=== PATIENT | female | born 1990 | race Caucasian/White ===

== ENCOUNTER 2018-10-15 13:52 | Emergency (ER) | payer SELFPAY ==
--- NOTE | 2018-10-15 14:12 | ER Document Report ---
ED Medical Screen (RME) - General Chief Complaint: Vag Bleeding, +preg <12wks Stated Complaint: BLEEDING WITH Time Seen by Provider: 10/15/18 14:09 Mode of Arrival: Ambulatory Information source: Patient TRAVEL OUTSIDE OF THE [place] IN LAST 30 DAYS: No - HPI Patient complains to provider of: ; bleeding Onset: This morning - pt. is G1, approx 6 weeks along with vaginal bleeding after intercourse this am - Related Data Allergies/Adverse Reactions: No Known Allergies Allergy (Verified 10/15/18 13:58) Past Medical History Renal/ Medical History: Denies: Hx Peritoneal Dialysis Physical Exam - Vital signs Vitals: Temp Pulse Resp BP Pulse Ox 99.2 F 110 H 18 127/67 H 100 10/15/18 14:01 10/15/18 14:01 10/15/18 14:01 10/15/18 14:01 10/15/18 14:01 Course - Vital Signs Vital signs: Temp Pulse Resp BP Pulse Ox 99.2 F 110 H 18 127/67 H 100 10/15/18 14:01 10/15/18 14:01 10/15/18 14:01 10/15/18 14:01 10/15/18 14:01
--- NOTE | 2018-10-15 14:49 | RADIOLOGY REPORT (SQ) ---
EXAM DESCRIPTION: U/S OB TRANSVAG W/DOPPLER COMPLETED DATE/TIME: 10/15/2018 2:39 pm REASON FOR STUDY: ; bleeding COMPARISON: None. TECHNIQUE: Transvaginal static and realtime grayscale images acquired of the pelvis. Additional acacia cted spectral and color Doppler images recorded. All images stored on PACs. CLINICAL AGE: 6 week 2 day. bHCG: Pending. LIMITATIONS: None. FINDINGS: UTERUS: No masses. No anomalies. GESTATIONAL SAC: Normal shape. Measurements correspond to a 5 week 2 day gestation. YOLK SAC: Yes. POLE: None present. RIGHT ADNEXA: Normal ovary with normal vascular flow. No adnexal free fluid. No adnexal masses. LEFT ADNEXA: Ovary not identified due to poor acoustical window. No adnexal free fluid. No adnexal masses. FREE FLUID: None. OTHER: No other significant finding. IMPRESSION: POSSIBLE EARLY INTRAUTERINE . BHCG LEVEL NOT AVAILABLE FOR CORRELATION WITH US FINDINGS. CONSIDER F/U BHCG AND/OR ULTRASOUND FOR VERIFICATION AND TO EXCLUDE ECTOPIC . Trimester of : First - 0 to 13 weeks. TECHNICAL DOCUMENTATION: JOB ID: [id number] [employer]- All Rights Reserved Reading location - IP/workstation name: [email or web address]
[2018-10-15 14:52] LABS: APPEARANCE,URINE CLEAR; BILIRUBIN,URINE NEGATIVE (NEGATIVE); COLOR,URINE YELLOW; GLUCOSE, URINE NEGATIVE (NEGATIVE); KETONES,URINE NEGATIVE (NEGATIVE); LEUKOCYTE ESTERASE,URINE NEGATIVE (NEGATIVE); NITRITE,URINE NEGATIVE (NEGATIVE); PROTEIN,URINE NEGATIVE (NEGATIVE); URINE SPECIFIC GRAVITY 1.009; UROBILINOGEN,URINE NEGATIVE mg/dL (<2.0)
[2018-10-15 14:56] LABS: ABSOLUTE BASOPHILS # (AUTO) 0.1 10^3/uL (0.0-0.2); ABSOLUTE EOSINOPHILS # (AUTO) 0.1 10^3/uL (0.0-0.6); ABSOLUTE LYMPHOCYTES (AUTO) 1.8 10^3/uL (0.5-4.7); ABSOLUTE MONOCYTES (AUTO) 0.7 10^3/uL (0.1-1.4); ABSOLUTE NEUT (AUTO) 10.9 10^3/uL (1.7-8.2); BASOPHILS % (AUTO) 0.9 % (0-2); EOSINOPHILS % (AUTO) 0.4 % (0-6); HEMATOCRIT 44.3 % (36.0-47.0); LYMPHOCYTES % (AUTO) 13.1 % (13-45); MEAN CORPUSCULAR HEMOGLOBIN 28.7 pg (27.0-33.4); MEAN CORPUSCULAR HGB CONC 33.9 g/dL (32.0-36.0); MEAN CORPUSCULAR VOLUME 85 fl (80-97); MONOCYTES % (AUTO) 5.4 % (3-13); PLATELET COUNT 272 10^3/uL (150-450); RED BLOOD COUNT 5.24 10^6/uL (3.72-5.28); RED CELL DISTRIBUTION WIDTH 13.4 % (11.5-14.0); SEGMENTED NEUTROPHILS % (AUTO) 80.2 % (42-78); TOTAL CELLS COUNTED % (AUTO) 100 %; WHITE BLOOD COUNT 13.7 10^3/uL (4.0-10.5)
[2018-10-15 15:16] LABS: ALANINE AMINOTRANSFERASE 35 U/L (9-52); ALBUMIN 4.9 g/dL (3.5-5.0); ALKALINE PHOSPHATASE 82 U/L (38-126); ANION GAP 11 (5-19); ASPARTATE AMINO TRANSFERASE 21 U/L (14-36); BILIRUBIN,DIRECT 0.1 mg/dL (0.0-0.4); BILIRUBIN,TOTAL 0.4 mg/dL (0.2-1.3); BLOOD UREA NITROGEN 11 mg/dL (7-20); CALCIUM 10.6 mg/dL (8.4-10.2); CARBON DIOXIDE 26 mmol/L (22-30); CHLORIDE 106 mmol/L (98-107); GLUCOSE 111 mg/dL (75-110); POTASSIUM 4.3 mmol/L (3.6-5.0); SODIUM 142.6 mmol/L (137-145); TOTAL PROTEIN 7.6 g/dL (6.3-8.2)
--- NOTE | 2018-10-15 17:42 | ER Document Report ---
ED General - General Chief Complaint: Vag Bleeding, +preg <12wks Stated Complaint: BLEEDING WITH Time Seen by Provider: 10/15/18 14:09 Mode of Arrival: Ambulatory Information source: Patient TRAVEL OUTSIDE OF THE [place] IN LAST 30 DAYS: No - HPI Patient complains to provider of: Early and vaginal bleeding Onset: Just prior to arrival Quality of pain: No pain Severity: None Associated symptoms: None Exacerbated by: Denies Relieved by: Denies Similar symptoms previously: No Recently seen / treated by doctor: No Notes: Patient is a 28-year-old female coming in today with chief complaint of vaginal bleeding. She found out a couple days ago that she was . She thinks that she is about 6 weeks along. This would be her first . She has type AB positive blood. She reports this morning she had intercourse with her boyfriend and then started having some bleeding. She describes this is less than a period. - Related Data Allergies/Adverse Reactions: No Known Allergies Allergy (Verified 10/15/18 13:58) Past Medical History - General Information source: Patient - Social History Smoking Status: Never Smoker Family History: Reviewed & Not Pertinent Patient has suicidal ideation: No Patient has homicidal ideation: No Renal/ Medical History: Denies: Hx Peritoneal Dialysis Review of Systems - Review of Systems Notes: Constitutional: No fevers. No chills. EENT: No eye redness. No eye pain. No ear pain. No sore throat. Cardiovascular: No chest pain. No palpitations. Respiratory: No cough. No shortness of breath. No respiratory distress. Gastrointestinal: No abdominal pain. No nausea, vomiting, or diarrhea. Genitourinary: Positive vaginal bleeding Musculoskeletal: Atraumatic. No swelling. No deformities. Skin: No rash or lesions. Lymphatic: No swollen lymph nodes. Neurologic: No headache. No syncope. Psychiatric: No suicidal or homicidal ideation. Physical Exam - Vital signs Vitals: Temp Pulse Resp BP Pulse Ox 99.2 F 110 H 18 127/67 H 100 10/15/18 14:01 10/15/18 14:01 10/15/18 14:01 10/15/18 14:01 10/15/18 14:01 - Notes Notes: General: Well-developed, well-nourished. In no acute distress. Non-toxic appearing. Cardiac: Well-perfused. Regular rate and rhythm. No murmurs, rubs, or gallops. Pulmonary: No respiratory distress. No cyanosis. Bilateral lung parra are clear to auscultation. Abdominal: Non-distended. Non-rigid. Bowels sounds are present in all four quadrants. No guarding or rebound. HEENT: Head is atraumatic. Conjunctivae not reddened. No tearing. PERRL. EOMI. Orbits atraumatic. No periorbital swelling or erythema. Oropharynx is without erythema, swelling, or exudates. Neck: Supple. No adenopathy. No meningismus. Dermatologic: Warm with good turgor. No rash. Atraumatic. Chest: Atraumatic. No chest wall tenderness to palpation. Musculoskeletal: Moves all extremities well. No range of motion deficits. no muscular or joint tenderness. No paraspinal muscle tenderness. no midline spinal tenderness or step-off. Genitourinary: Examination deferred per patient request Neurologic: No gross neurologic deficits. Psychiatric: Normal mood. Course - Re-evaluation Re-evalutation: 10/15/18 17:40 Patient has ultrasound findings of possible IUP. We will have her follow-up in 2 days for an hCG recheck. She does not need RhoGam. Told her boyfriend that he needs to abstain for a while until we know everything is okay. - Vital Signs Vital signs: Temp Pulse Resp BP Pulse Ox 99.2 F 110 H 18 127/67 H 100 10/15/18 14:01 10/15/18 14:01 10/15/18 14:01 10/15/18 14:01 10/15/18 14:01 - Laboratory Result Diagrams: 10/15/18 14:42 10/15/18 14:42 Laboratory results interpreted by me: 10/15/18 10/15/18 10/15/18 14:14 14:42 14:42 WBC 13.7 H Seg Neutrophils % 80.2 H Absolute Neutrophils 10.9 H Glucose 111 H Calcium 10.6 H Beta HCG, Quant 1136.20 H Urine Blood LARGE H Discharge - Discharge Clinical Impression: Threatened Condition: Good Disposition: HOME, SELF-CARE Instructions: Bleeding During Early ([facility]), Threatened Miscarriage ([facility]) Additional Instructions: You need to have your hormone level rechecked in 2 days Referrals: CHIRAG LANDRY MD [ACTIVE STAFF] - 10/17/18
[2018-10-15 18:12] VITALS: BP 126/68
--- NOTE | 2018-10-17 07:29 | ER Document Report ---
Doctor's Note Notes: 10/17/18 07:28 Patient was instructed to follow-up this morning to get an outpatient lab checked for repeat beta hCG quant. Order was provided to patient she is going to go across the street to [facility].
== END 2018-10-15 18:00 | disposition home or self-care (01) ==
LOC: ER 13:52
DX: O20.0 Threatened abortion (principal); Z3A.00 Weeks of gestation of pregnancy not specified
CPT/HCPCS: 36415; 76817; 80053; 81001; 84702; 85025; 86900; 86901; 93976; 99284

== ENCOUNTER → 2018-10-17 | Outpatient (CLI) | payer SELFPAY | LOC: OD 07:35 | PROVIDERS: ATTEND Physician Assistant | DX: O20.9 Hemorrhage in early pregnancy, unspecified (principal) | CPT/HCPCS: 36415; 84702 ==

== ENCOUNTER 2019-05-24 11:50 | Observation (INO) | payer MEDICAID ==
[2019-05-24] MEDS ORDERED: RINGERS SOLUTION,LACTATED 1,000 ML IV ONE (12:09)
[2019-05-24 13:12] LABS: ABSOLUTE LYMPHOCYTES (AUTO) 1.2 10^3/uL (0.5-4.7); ABSOLUTE NEUT (AUTO) 15.7 10^3/uL (1.7-8.2); BASOPHILS % (AUTO) 0.3 % (0-2); EOSINOPHILS % (AUTO) 0.1 % (0-6); HEMATOCRIT 34.6 % (36.0-47.0); HEMOGLOBIN 11.5 g/dL (12.0-15.5); LYMPHOCYTES % (AUTO) 6.7 % (13-45); MEAN CORPUSCULAR HEMOGLOBIN 27.2 pg (27.0-33.4); MEAN CORPUSCULAR HGB CONC 33.2 g/dL (32.0-36.0); MEAN CORPUSCULAR VOLUME 82 fl (80-97); MONOCYTES % (AUTO) 5.5 % (3-13); PLATELET COUNT 254 10^3/uL (150-450); RED BLOOD COUNT 4.23 10^6/uL (3.72-5.28); SEGMENTED NEUTROPHILS % (AUTO) 87.4 % (42-78); TOTAL CELLS COUNTED % (AUTO) 100 %; WHITE BLOOD COUNT 17.9 10^3/uL (4.0-10.5)
[2019-05-24 13:25] LABS: APPEARANCE,URINE SLIGHTLY-CLOUDY; BILIRUBIN,URINE NEGATIVE (NEGATIVE); COLOR,URINE YELLOW; GLUCOSE, URINE >=500 mg/dL (NEGATIVE); KETONES,URINE 80 mg/dL (NEGATIVE); LEUKOCYTE ESTERASE,URINE TRACE (NEGATIVE); NITRITE,URINE NEGATIVE (NEGATIVE); PROTEIN,URINE >=500 mg/dL (NEGATIVE); URINE SPECIFIC GRAVITY 1.029; UROBILINOGEN,URINE NEGATIVE mg/dL (<2.0)
[2019-05-24] MEDS ORDERED: ACETAMINOPHEN 325 MG TABLET PO PRN (13:34)
[2019-05-24] MEDS ORDERED: CEFTRIAXONE INJ 1000 MG VIAL ONE (13:35)
[2019-05-24 13:47] LABS: URINE AMPHETAMINES SCREEN NEGATIVE; URINE BARBITURATES SCREEN NEGATIVE; URINE BENZODIAZEPINES SCREEN NEGATIVE; URINE COCAINE SCREEN NEGATIVE; URINE MARIJUANA (THC) SCREEN NEGATIVE; URINE METHADONE SCREEN NEGATIVE; URINE PHENCYCLIDINE SCREEN NEGATIVE
[2019-05-24] MEDS ORDERED: ACETAMINOPHEN 325 MG TABLET ONE (13:47)
[2019-05-24] MEDS ORDERED: NALBUPHINE HCL INJ 10 MG/1 ML AMPULE ONE ×2 (13:50→13:58)
[2019-05-24] MEDS ORDERED: PROMETHAZINE HCL INJ 25 MG/1 ML VIAL ONE ×2 (13:50→13:58)
[2019-05-24] MEDS ORDERED: CEFTRIAXONE 1 GM/D5W RTU 1 GM/50 ML RTUPB IV SCH (14:00)
--- NOTE | 2019-05-24 14:03 | Admission Physical ---
Datetime Report Generated by CPN: 05/24/2019 14:03 CURRENT ADMISSION Chief Complaint: Maternal Discomfort Chief Complaint Other: Right back flank pain Indication for Induction: Not Applicable Admit Impression : , Intrauterine ; Observation/Evaluation Admit Impression- Other: Pyelonephritis Admit Plan: Observation/Evaluation ALLERGIES Medication Allergies: No Known Allergies (05/24/2019) OBSTETRICAL HISTORY EDC: 07/22/2019 00:00 PHYSICAL EXAM General: Normal HEENT: Normal Neurologic: Normal Thyroid: Deferred Heart: Normal Lungs: Normal Breast: Deferred Back: Abnormal Abdomen: Normal Genitourinary Exam: Deferred Extremities: Normal DTRs: Normal Pelvic Type: Not Done Physical Exam Comments: Gravid uterus Right flank pain Vital Signs: Reviewed; Within Normal Limits VAGINAL EXAM Contraction Comments: occasional MEMBRANES Membranes: Intact FETUS A EGA: 31.4 Monitoring: External US FHR- Baseline: 140 Variability: Moderate 6-25bpm Admit Comment: 31.4 wks C/O severe, sudden onset right flank pain, nausea _ vomiting this am. Afebrile. uneventful to this point FHR tracing appropriate for [place] records available Uterus nontender, relaxed tone CBC-WBC 17.9 Urine SG 1.029; >500 protein; >500 glucose; ketones 80 Plan admit for observation and evaluation Ultrasound of kidneys and placental status ordered Dr Zhou notified INFORMED CONSENT Assignment: Curtis Zhou MD Signature: with User ID: [email or web address] : with User ID: [email or web address] : I personally evaluated and examined the patient in conjunction with the MLP and agree with the assessment, treatment plan and disposition.
[2019-05-24] MEDS: RINGERS SOLUTION,LACTATED 1,000 ML IV PRN ×2 (14:09→14:48)
--- NOTE | 2019-05-24 14:18 | RADIOLOGY REPORT (SQ) ---
EXAM DESCRIPTION: U/S OB LIMITED COMPLETED DATE/TIME: 05/24/2019 1:52 pm REASON FOR STUDY: IUP @ 31.4, placental placement and integrity COMPARISON: None. TECHNIQUE: Limited transabdominal grayscale ultrasound for evaluation of specific requested obstetri brenna parameters. LIMITATIONS: None. FINDINGS: CERVICAL LENGTH: Not seen. ZAC: 7.4 cm cm. FHR: 152 beats per minute. PRESENTATION: Cephalic. PLACENTA: Anterior, grade 1. ANATOMY: Not assessed OTHER: No other significant findings. IMPRESSION: LIMITED OBSTETRICAL ULTRASOUND WITH MEASURED PARAMETERS DELINEATED ABOVE. Trimester of : Third trimester - 28 weeks to delivery. TECHNICAL DOCUMENTATION: JOB ID: [id number] [employer]- All Rights Reserved Reading location - IP/workstation name: [email or web address]
--- NOTE | 2019-05-24 14:19 | RADIOLOGY REPORT (SQ) ---
EXAM DESCRIPTION: U/S RETROPERITON (RENAL/AORTA) COMPLETED DATE/TIME: 05/24/2019 1:52 pm REASON FOR STUDY: acute RUQ flank pain COMPARISON: None. TECHNIQUE: Dynamic and static grayscale images acquired of the kidneys and bladder and recorded on P ACS. Additional selected color Doppler and spectral images recorded. LIMITATIONS: None. FINDINGS: RIGHT KIDNEY: Normal size, a meter is. Normal echogenicity. No solid or suspicious masses. No hydronephrosis. No calcifications. LEFT KIDNEY: Normal size, 10.7 cm. Normal echogenicity. No solid or suspicious masses. No hydronephr osis. No calcifications. BLADDER: No masses. OTHER FINDINGS: No other significant finding. IMPRESSION: Normal renal and bladder ultrasound. Questionable free fluid in Morison's pouch. No im age of this is provided. TECHNICAL DOCUMENTATION: JOB ID: [id number] [employer]- All Rights Reserved Reading location - IP/workstation name: [email or web address]
[2019-05-24] MEDS: ACETAMINOPHEN WITH CODEINE #3 TABLET PO PRN (20:36)
[2019-05-24] MEDS: CEFTRIAXONE 1 GM/D5W RTU 1 GM/50 ML RTUPB IV SCH (21:05)
[2019-05-25] MEDS: ACETAMINOPHEN WITH CODEINE #3 TABLET PO PRN ×5 (00:39→21:36)
[2019-05-25] MEDS: PROMETHAZINE HCL INJ 25 MG/1 ML VIAL IV PRN ×2 (07:59→21:37)
[2019-05-25] MEDS: RINGERS SOLUTION,LACTATED 1,000 ML IV PRN ×2 (07:59→16:35)
[2019-05-25] MEDS: CEFTRIAXONE 1 GM/D5W RTU 1 GM/50 ML RTUPB IV SCH ×2 (10:34→21:36)
--- NOTE | 2019-05-25 15:17 | PDOC PROGRESS REPORT ---
Subjective Progress Note for:: 05/25/19 Subjective:: right flank pain. No flatus, no BM, doing well with po intake Reason For Visit: IUP PYLENOPHRITIS Physical Exam - Physical Exam Vital Signs: Temp Pulse Resp BP Pulse Ox 97.7 F 111 H 16 112/67 100 05/25/19 07:19 05/25/19 07:19 05/25/19 03:51 05/25/19 07:19 05/25/19 07:19 Intake & Output 05/24/19 05/25/19 05/26/19 06:59 06:59 06:59 Intake Total 1761 100 Output Total 1000 Balance 1761 -900 Weight 79.7 kg General appearance: PRESENT: no acute distress, well-developed, well-nourished GI/Abdominal exam: PRESENT: normal bowel sounds, soft, other - no CVAT. ABSENT: distended, guarding, mass, organolmegaly, rebound, tenderness Rectal exam: PRESENT: deferred Extremities exam: PRESENT: full ROM. ABSENT: calf tenderness, clubbing, pedal edema Neurological exam: PRESENT: alert, awake, oriented to person, oriented to place, oriented to time, oriented to situation, CN II-XII grossly intact. ABSENT: motor sensory deficit Skin exam: PRESENT: dry, intact, warm. ABSENT: cyanosis, rash Result Laboratory Results: 05/24/19 12:57 05/24/19 12:50 Clean Catch Midstream Urine Culture - Final Group B Beta Streptococcus Impressions: Obstetrics Ultrasound 05/24/19 00:00 IMPRESSION: LIMITED OBSTETRICAL ULTRASOUND WITH MEASURED PARAMETERS DELINEATED ABOVE. Trimester of : Third trimester - 28 weeks to delivery. Renal Ultrasound 05/24/19 00:00 IMPRESSION: Normal renal and bladder ultrasound. Questionable free fluid in Morison's pouch. No image of this is provided. Status: Imported from PACS Assessment & Plan - Diagnosis (1) Pyelonephritis affecting Qualifiers: Trimester: third trimester Qualified Code(s): O23.03 - Infections of kidney in , third trimester Is this a current diagnosis for this admission?: Yes Plan: COnt BID abx and pain control prn, add breakthrough pain meds. Pt with traveling flank pain and not having good pain control with t#3. Dilaudid added. May also have a component of Nephrolithiasis. Plan on care reviewed with patient who verbalized understanding. (2) Carrier of group B Streptococcus Is this a current diagnosis for this admission?: Yes Plan: will need to be treated in labor. Cont BID rocephin (3) Constipation Is this a current diagnosis for this admission?: Yes Plan: colace and simethicone - Time Time Spent with patient: 15-24 minutes Smoking Cessation Education: 3 to 10 minutes Medications reviewed and adjusted accordingly: Yes Anticipated discharge: Home Within: within 24 hours - Inpatient Certification Based on my medical assessment, after consideration of the patient's comor bidities, presenting symptoms, or acuity I expect that the services needed warrant INPATIENT care.: Yes I certify that my determination is in accordance with my understanding of Medicare's requirements for reasonable and necessary INPATIENT services [42 CFR 412.3e].: Yes Medical Necessity: Failure to Improve With Outpatient Therapy, Need for Pain Control, Need for IV Antibiotics
[2019-05-25] MEDS ORDERED: SIMETHICONE 80 MG TAB.CHEW PO PRN (15:24)
[2019-05-25] MEDS: HYDROMORPHONE HCL INJ/PF 2 MG/ML AMPULE IV PRN ×2 (16:33→22:48)
[2019-05-25] MEDS: DOCUSATE SODIUM 100 MG CAPSULE PO SCH (18:13)
[2019-05-26] MEDS: RINGERS SOLUTION,LACTATED 1,000 ML IV PRN (01:39)
[2019-05-26 06:52] LABS: ABSOLUTE BASOPHILS # (AUTO) 0.1 10^3/uL (0.0-0.2); ABSOLUTE MONOCYTES (AUTO) 1.9 10^3/uL (0.1-1.4); ABSOLUTE NEUT (AUTO) 12.8 10^3/uL (1.7-8.2); BASOPHILS % (AUTO) 0.5 % (0-2); EOSINOPHILS % (AUTO) 0.3 % (0-6); HEMATOCRIT 30.7 % (36.0-47.0); HEMOGLOBIN 10.3 g/dL (12.0-15.5); LYMPHOCYTES % (AUTO) 6.5 % (13-45); MEAN CORPUSCULAR HEMOGLOBIN 27.3 pg (27.0-33.4); MEAN CORPUSCULAR HGB CONC 33.4 g/dL (32.0-36.0); MEAN CORPUSCULAR VOLUME 82 fl (80-97); MONOCYTES % (AUTO) 11.8 % (3-13); PLATELET COUNT 220 10^3/uL (150-450); RED BLOOD COUNT 3.77 10^6/uL (3.72-5.28); RED CELL DISTRIBUTION WIDTH 13.9 % (11.5-14.0); SEGMENTED NEUTROPHILS % (AUTO) 80.9 % (42-78); TOTAL CELLS COUNTED % (AUTO) 100 %; WHITE BLOOD COUNT 15.9 10^3/uL (4.0-10.5)
[2019-05-26 07:05] LABS: ALKALINE PHOSPHATASE 93 U/L (38-126); ANION GAP 7 (5-19); ASPARTATE AMINO TRANSFERASE 19 U/L (14-36); BILIRUBIN,DIRECT 0.1 mg/dL (0.0-0.4); BILIRUBIN,TOTAL 0.4 mg/dL (0.2-1.3); BLOOD UREA NITROGEN 4 mg/dL (7-20); CALCIUM 8.9 mg/dL (8.4-10.2); CARBON DIOXIDE 22 mmol/L (22-30); CHLORIDE 107 mmol/L (98-107); GLUCOSE 99 mg/dL (75-110); POTASSIUM 3.8 mmol/L (3.6-5.0); TOTAL PROTEIN 5.5 g/dL (6.3-8.2)
[2019-05-26] MEDS: DOCUSATE SODIUM 100 MG CAPSULE PO SCH (10:06)
[2019-05-26] MEDS: PROMETHAZINE HCL INJ 25 MG/1 ML VIAL IV PRN (10:06)
[2019-05-26] MEDS: CEFTRIAXONE 1 GM/D5W RTU 1 GM/50 ML RTUPB IV SCH (10:06)
--- NOTE | 2019-05-26 15:16 | PDOC DISCHARGE SUMMARY ---
Impression - Admit/DC Date/PCP Admission Date/Primary Care Provider: 05/24/19 13:51 CJ ASHLEY MD Discharge Date: 05/26/19 - Discharge Diagnosis (1) Carrier of group B Streptococcus Is this a current diagnosis for this admission?: Yes (2) Constipation Is this a current diagnosis for this admission?: Yes (3) Pyelonephritis affecting Is this a current diagnosis for this admission?: Yes - Assessment Summary: admited at 31+ wks gestation with suspected pyelonephritis. Has responded well to antibiotics and pain is much improved. Has had 48 hours antibiotics and her WBC has declined appropriately. Desires discharge home - Additional Information Resuscitation Status: Full Code Discharge Diet: As Tolerated Discharge Activity: Activity As Tolerated, Balance Activity w/Rest Referrals: [facility] [Provider Group] Prescriptions: Acetaminophen with Codeine [Tylenol #3 Tablet] 1 each PO Q4HP PRN #20 tablet PRN Reason: Cephalexin Monohydrate [Keflex 500 mg Capsule] 500 mg PO DAILY 30 Days #30 capsule Cephalexin Monohydrate [Keflex 500 mg Capsule] 500 mg PO QID #20 capsule Home Medications: Acetaminophen [Tylenol] 650 mg PO PRN PRN 05/24/19 No122/Iron/Folic Acid [ Multi Tablet] 1 each PO DAILY 05/24/19 Acetaminophen with Codeine [Tylenol #3 Tablet] 1 each PO Q4HP PRN #20 tablet 05/26/19 Cephalexin Monohydrate [Keflex 500 mg Capsule] 500 mg PO DAILY 30 Days #30 capsule 05/26/19 Cephalexin Monohydrate [Keflex 500 mg Capsule] 500 mg PO QID #20 capsule 9 History of Present Illiness History of Present Illness: CASSIDY BENNETT is a 29 year old female Physical Exam - Physical Exam Vital Signs: Temp Pulse Resp BP Pulse Ox 98.2 F 101 H 16 119/66 100 05/26/19 11:08 05/26/19 11:08 05/26/19 11:08 05/26/19 11:08 05/26/19 11:08 Intake & Output 05/25/19 05/26/19 05/27/19 06:59 06:59 06:59 Intake Total 1761 2710 50 Output Total 4200 Balance 1761 -1490 50 Weight 79.7 kg Results Laboratory Results: WBC 15.9 10^3/uL (4.0-10.5) H 05/26/19 06:40 RBC 3.77 10^6/uL (3.72-5.28) 05/26/19 06:40 Hgb 10.3 g/dL (12.0-15.5) L 05/26/19 06:40 Hct 30.7 % (36.0-47.0) L 05/26/19 06:40 MCV 82 fl (80-97) 05/26/19 06:40 MCH 27.3 pg (27.0-33.4) 05/26/19 06:40 MCHC 33.4 g/dL (32.0-36.0) 05/26/19 06:40 RDW 13.9 % (11.5-14.0) 05/26/19 06:40 Plt Count 220 10^3/uL (150-450) 05/26/19 06:40 Lymph % (Auto) 6.5 % (13-45) L 05/26/19 06:40 Harding % (Auto) 11.8 % (3-13) 05/26/19 06:40 Eos % (Auto) 0.3 % (0-6) 05/26/19 06:40 Baso % (Auto) 0.5 % (0-2) 05/26/19 06:40 Absolute Neuts (auto) 12.8 10^3/uL (1.7-8.2) H 05/26/19 06:40 Absolute Lymphs (auto) 1.0 10^3/uL (0.5-4.7) 05/26/19 06:40 Absolute Monos (auto) 1.9 10^3/uL (0.1-1.4) H 05/26/19 06:40 Absolute Eos (auto) 0.0 10^3/uL (0.0-0.6) 05/26/19 06:40 Absolute Basos (auto) 0.1 10^3/uL (0.0-0.2) 05/26/19 06:40 Seg Neutrophils % 80.9 % (42-78) H 05/26/19 06:40 Sodium 135.8 mmol/L (137-145) L 05/26/19 06:40 Potassium 3.8 mmol/L (3.6-5.0) 05/26/19 06:40 Chloride 107 mmol/L (98-107) 05/26/19 06:40 Carbon Dioxide 22 mmol/L (22-30) 05/26/19 06:40 Anion Gap 7 (5-19) 05/26/19 06:40 BUN 4 mg/dL (7-20) L 05/26/19 06:40 Creatinine 0.51 mg/dL (0.52-1.25) L 05/26/19 06:40 Est GFR ( Amer) > 60 (>60) 05/26/19 06:40 Est GFR (MDRD) Non-Af > 60 (>60) 05/26/19 06:40 Glucose 99 mg/dL (75-110) 05/26/19 06:40 POC Glucose 112 mg/dL (70-110) H 05/24/19 14:02 Calcium 8.9 mg/dL (8.4-10.2) 05/26/19 06:40 Total Bilirubin 0.4 mg/dL (0.2-1.3) 05/26/19 06:40 Direct Bilirubin 0.1 mg/dL (0.0-0.4) 05/26/19 06:40 Neonat Total Bilirubin Not Reportable 05/26/19 06:40 Neonat Direct Bilirubin Not Reportable 05/26/19 06:40 Neonat Indirect Bili Not Reportable 05/26/19 06:40 AST 19 U/L (14-36) 05/26/19 06:40 ALT 13 U/L (<35) 05/26/19 06:40 Alkaline Phosphatase 93 U/L (38-126) 05/26/19 06:40 Total Protein 5.5 g/dL (6.3-8.2) L 05/26/19 06:40 Albumin 3.0 g/dL (3.5-5.0) L 05/26/19 06:40 Urine Color YELLOW 05/24/19 12:50 Urine Appearance SLIGHTLY-CLOUDY 05/24/19 12:50 Urine pH 5.0 (5.0-9.0) 05/24/19 12:50 Ur Specific [place] 1.029 05/24/19 12:50 Urine Protein >=500 mg/dL (NEGATIVE) H 05/24/19 12:50 Urine Glucose (UA) >=500 mg/dL (NEGATIVE) H 05/24/19 12:50 Urine Ketones 80 mg/dL (NEGATIVE) H 05/24/19 12:50 Urine Blood NEGATIVE (NEGATIVE) 05/24/19 12:50 Urine Nitrite NEGATIVE (NEGATIVE) 05/24/19 12:50 Urine Bilirubin NEGATIVE (NEGATIVE) 05/24/19 12:50 Urine Urobilinogen NEGATIVE mg/dL (<2.0) 05/24/19 12:50 Ur Leukocyte Esterase TRACE (NEGATIVE) H 05/24/19 12:50 Urine WBC (Auto) 13 /HPF 05/24/19 12:50 Urine RBC (Auto) 4 /HPF 05/24/19 12:50 U Hyaline Cast (Auto) 1 /LPF 05/24/19 12:50 Urine Bacteria (Auto) TRACE /HPF 05/24/19 12:50 Squamous Epi Cells Auto 6 /HPF 05/24/19 12:50 Urine Mucus (Auto) MANY /LPF 05/24/19 12:50 Urine Ascorbic Acid NEGATIVE (NEGATIVE) 05/24/19 12:50 Urine Opiates Screen NEGATIVE 05/24/19 12:50 Urine Methadone Screen NEGATIVE 05/24/19 12:50 Ur Barbiturates Screen NEGATIVE 05/24/19 12:50 Ur Phencyclidine Scrn NEGATIVE 05/24/19 12:50 Ur Amphetamines Screen NEGATIVE 05/24/19 12:50 U Benzodiazepines Scrn NEGATIVE 05/24/19 12:50 Urine Cocaine Screen NEGATIVE 05/24/19 12:50 U Marijuana (THC) Screen NEGATIVE 05/24/19 12:50 Impressions: Obstetrics Ultrasound 05/24/19 00:00 IMPRESSION: LIMITED OBSTETRICAL ULTRASOUND WITH MEASURED PARAMETERS DELINEATED ABOVE. Trimester of : Third trimester - 28 weeks to delivery. Renal Ultrasound 05/24/19 00:00 IMPRESSION: Normal renal and bladder ultrasound. Questionable free fluid in Morison's pouch. No image of this is provided. Stroke Is this a Stroke Patient?: No Acute Heart Failure - Is this a Heart Failure Patient?: No
[2019-05-26 15:20] VITALS: BP 116/71
== END 2019-05-26 15:25 | disposition home or self-care (01) ==
LOC: LC 11:50 → LR 13:51 → 2S 16:30
PROVIDERS: ADMIT Obstetrics & Gynecology Gynecology; ATTEND Obstetrics & Gynecology Gynecology
DX: O23.03 Infections of kidney in pregnancy, third trimester (principal); O99.820 Streptococcus B carrier state complicating pregnancy; Z3A.31 31 weeks gestation of pregnancy; K59.00 Constipation, unspecified
CPT/HCPCS: 36415 ×2; 87086; 82962; 85025 ×2; 87088; 80053; 81001; 80307; 76770; 76815; G0378 ×3; J3490 ×2; J2300; J1170; J2550 ×3; J0696 ×4; J7120 ×2

== ENCOUNTER 2019-07-23 10:19 | Inpatient (IN) | payer MEDICAID ==
[2019-07-23] MEDS ORDERED: MISOPROSTOL 0.2 MG TABLET ONE (10:32)
[2019-07-23] MEDS ORDERED: OXYTOCIN 10 UNIT/ML VIAL ONE (10:32)
[2019-07-23] MEDS ORDERED: LIDOCAINE 1% INJ-PF (10 MG/ML) 30 ML SDV ONE (10:33)
[2019-07-23] MEDS ORDERED: OXYTOCIN/NORMAL SALINE 0 UNIT/0 ML RTUINJ ONE (10:33)
--- NOTE | 2019-07-23 11:20 | Admission Physical ---
Datetime Report Generated by CPN: 07/23/2019 11:20 CURRENT ADMISSION Hx Assessment: The History has been Reviewed and is Current Chief Complaint: Uterine Contractions Chief Complaint Other: Right back flank pain Indication for Induction: Not Applicable Admit Impression : Active Labor Admit Impression- Other: ruptured on admission, thick mec Admit Plan: Admit to Unit ALLERGIES Medication Allergies: No Medication Allergies: No Known Allergies (07/23/2019) Latex: No Latex Allergies OBSTETRICAL HISTORY EDC: 07/23/2019 00:00 : 2 Para: 0 Term: 0 : 0 SAB: 1 IAB: 0 Ectopic: 0 Livin Cesareans: 0 VBACs: 0 Multiple Births: 0 ART Treatment: No Depression/PP Depression: No Current Procedures: Ultrasound Obstetrical History Comments: G-1 SAB 5 Weeks G-2 current , pyelonephritis 05/2019 SEE RECORDS Alcohol: No Marijuana : No Cocaine: No Other Illicit Drugs: No Cigarettes: Never Smoker. 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 Heart Disease: No Hosp/Surgery: Yes Autoimmune Disorder: No Anesthetic Complications: No Kidney Disease: Yes Abnormal Pap Smear: No Neuro/Epilepsy: No Psychiatric Disorders: No Other Medical Diseases: No Hepatitis/Liver Disease: No Significant Family History: No Varicosities/Phlebitis: No Trauma/Violence : No Thyroid Dysfunction: No PHYSICAL EXAM General: Normal HEENT: Normal Neurologic: Normal Thyroid: Normal Heart: Normal Lungs: Normal Breast: Normal Back: Normal Abdomen: Normal Genitourinary Exam: Normal Extremities: Normal DTRs: Normal Pelvic Type: Adequate Physical Exam Comments: Gravid uterus Right flank pain Vital Signs: Reviewed VAGINAL EXAM Contraction Comments: occasional MEMBRANES Membranes: Intact FETUS A EGA: 40.0 Monitoring: External US FHR- Baseline: 140 Variability: Moderate 6-25bpm Decelerations: None Admit Comment: Admitted to LD in active labor, 8cm and quickly progressed to complete, started pushing, SROM thick mec, anticipate PLANS FOR LABOR AND DELIVERY Labor and Delivery: None Pain Management: None Feeding Preference: Breast Benefit of Breast Feed Discussed: Yes Circumcision: Yes INFORMED CONSENT Assignment: Jyoti Flores MD Signature: with User ID: [email or web address] : with User ID: [email or web address] : I personally evaluated and examined the patient in conjunction with the MLP and agree with the assessment, treatment plan and disposition.
[2019-07-23] MEDS ORDERED: GLYCERIN/WITCH HAZEL LEAF 1 EACH MED..WIPE TP PRN (11:29)
[2019-07-23] MEDS ORDERED: MISOPROSTOL 0.2 MG TABLET PR PRN (11:29)
[2019-07-23] MEDS ORDERED: PROMETHAZINE HCL INJ 25 MG/1 ML VIAL IV PRN (11:29)
[2019-07-23] MEDS ORDERED: NA PHOS,M-B/NA PHOS,DI-BA (ADULT) 133 ML ENEMA PR PRN (11:29)
[2019-07-23] MEDS ORDERED: PROMETHAZINE HCL 25 MG TABLET PO PRN (11:29)
[2019-07-23] MEDS ORDERED: PROMETHAZINE HCL 25 MG SUPP.RECT PR PRN (11:29)
[2019-07-23] MEDS ORDERED: ACETAMINOPHEN WITH CODEINE #3 TABLET PO PRN ×2 (11:29)
[2019-07-23] MEDS ORDERED: OXYTOCIN/NORMAL SALINE 20 UNIT/1,000 ML RTUINJ IV PRN (11:29)
[2019-07-23] MEDS ORDERED: MAGNESIUM HYDROXIDE SUSP 30 ML UDCUP PO PRN (11:29)
[2019-07-23] MEDS ORDERED: MEASLES,MUMPS&RUBELLA VACC/PF 0.5 ML VIAL SUBCUT PRN (11:29)
[2019-07-23] MEDS ORDERED: DIBUCAINE 1% OINTMENT 56 GM TP PRN (11:29)
[2019-07-23] MEDS ORDERED: PSEUDOEPHEDRINE HCL 30 MG TABLET PO PRN (11:29)
[2019-07-23] MEDS ORDERED: DIPHENHYDRAMINE HCL 25 MG CAPSULE PO PRN (11:29)
[2019-07-23] MEDS ORDERED: ACETAMINOPHEN 650 MG SUPP.RECT PR PRN (11:29)
[2019-07-23] MEDS ORDERED: DIPH/PERTUSS(ACELL)/TETANUS VAC/PF 0.5 ML SYR (>=10YO) IM PRN (11:29)
[2019-07-23] MEDS ORDERED: BENZOCAINE/MENTHOL AEROSOL SPRAY 56 ML TOP PRN (11:29)
[2019-07-23 12:00] LABS: HEMATOCRIT 37.2 % (36.0-47.0); HEMOGLOBIN 11.9 g/dL (12.0-15.5); MEAN CORPUSCULAR HEMOGLOBIN 24.5 pg (27.0-33.4); MEAN CORPUSCULAR HGB CONC 31.9 g/dL (32.0-36.0); MEAN CORPUSCULAR VOLUME 77 fl (80-97); PLATELET COUNT 240 10^3/uL (150-450); RED BLOOD COUNT 4.85 10^6/uL (3.72-5.28); WHITE BLOOD COUNT 21.8 10^3/uL (4.0-10.5)
[2019-07-23] MEDS ORDERED: IBUPROFEN 800 MG TABLET ONE (12:22)
[2019-07-23] MEDS ORDERED: BENZOCAINE/MENTHOL AEROSOL SPRAY 56 ML ONE (12:22)
[2019-07-23 12:30] LABS: ABSOLUTE LYMPHOCYTES# (MANUAL) 0.9 10^3/uL (0.5-4.7); ABSOLUTE MONOCYTES # (MANUAL) 0.4 10^3/uL (0.1-1.4); BAND NEUTROPHILS % (MANUAL) 1 % (3-5); BASOPHILS % (MANUAL) 0 % (0-2); EOSINOPHILS % (MANUAL) 0 % (0-6); LYMPHOCYTES % (MANUAL) 4 % (13-45); MONOCYTES % (MANUAL) 2 % (3-13); SEGMENTED NEUTROPHILS % (MAN) 93 % (42-78); TOTAL CELLS COUNTED 100
[2019-07-23 12:31] LABS: ANISOCYTOSIS 1+; HYPOCHROMASIA SLIGHT; OVALOCYTES SLIGHT; POIKILOCYTOSIS SLIGHT; POLYCHROMASIA SLIGHT
[2019-07-23 12:32] LABS: PLATELET COMMENT ADEQUATE
--- NOTE | 2019-07-23 13:00 | Warning Signs in Babies ---
VOD Warning Signs Datetime Report Generated by [facility]: 07/23/2019 12:59 VOD#608 -Warning Signs in Babies: Viewed with Parent(s)/Family (07/23/2019 12:15:Shanelle Martinez RN)
--- NOTE | 2019-07-23 14:04 | Delivery Summary ---
Del Sum A-C Datetime Report Generated by CPN: 07/23/2019 14:04 DELIVERY PERSONNEL DELIVERY PERSONNEL: [id number] Delivery Doctor:: Ludmila Kline CNM Nurse Blueprint Processor Certified:: Ludmila Kline CNM Labor and Delivery Nurse:: Shanelle Martinez RNmarketing project lead Nurse:: IMTIAZ Cook Nursery Nurse:: Sosa Perdomo RN Nursery Nurse:: Mindy Carroll RN First Responder/HUB BANDER: Prisca Dumont, CALL CENTER RN Additional Personnel: : Chris Magana RN MATERNAL INFORMATION Delivery Anesthesia: None Medications After Delivery: Pitocin 10 Units IM; Cytotec 1000mcg Per Rectum/Vagina Delivery QBL: 250 Maternal Complications: None Provider Comments: viable male from OA to TAMANNA over ML lac, loop of cord at delivery of vertex, placed on mothers abd, cord clamped and cut after 3 minutes by gmother. Spont delivery of grossly large placenta, 3 VC, laceration repaired with 2-0 chromic without difficulty, FFFM, cervix intact, rectum patent cytotec 1000mcg via rectum, baby and mom remains in recovery in stable condition LABOR SUMMARY EDC: 07/23/2019 00:00 No. Babies in Womb: 1 Attempted: No Labor Anesthesia: None LABOR INFORMATION Reason for Induction: Not Applicable Onset of Labor: 07/23/2019 07:30 Complete Dilatation: 07/23/2019 10:35 Oxytocin: N/A Group B Beta Strep: negative Antibiotics # of Doses: 0 Steroids Given: None Reason Steroids Not Administered: Not Applicable MEMBRANES Membranes Rupture Method: Spontaneous Rupture of Membranes: 07/23/2019 10:32 Length of Rupture (hr): 0.32 Amniotic Fluid Color: Heavy Meconium Amniotic Fluid Amount: Moderate Amniotic Fluid Odor: None STAGES OF LABOR Stage 1 hr: 3 Stage 1 min: 5 Stage 2 hr: 0 Stage 2 min: 16 Stage 3 hr: 0 Stage 3 min: 5 Total Time in Labor hr: 3 Total Time in Labor min: 26 VAGINAL DELIVERY Episiotomy: None Laceration #1: Perineal; Vaginal Laceration Extension #1: Second Degree Laceration Repair: Yes Laceration Repair Note: 2-0 chromic without difficulty, cervix intact, rectum patent Sponge Count Correct: N/A Sharps Count Correct: N/A CSECTION DELIVERY Primary Indication: N/A Secondary Indication: N/A CSection Incidence: N/A Labor: N/A Elective: N/A CSection Incision: N/A BABY A INFORMATION Delivery Date/Time: 07/23/2019 10:51 Method of Delivery: Vaginal Born in Route : No : N/A Forceps: N/A Vacuum Extraction: N/A Shoulder Dystocia : No PRESENTATION/POSITION BABY A Presentation: Cephalic Cephalic Presentation: Vertex Vertex Position: Left Occipital Anterior Breech Presentation: N/A PLACENTA INFORMATION BABY A Placenta Delivery Time : 07/23/2019 10:56 Placenta Method of Delivery: Spontaneous Placenta Status: Delivered SCORES BABY A Heart Rate 1 min: >100 bpm Resp Effort 1 min: Good Cry Reflex Irritability 1 min: Cough or Sneeze or Pulls Away Muscle Tone 1 min: Active Motion Color 1 min: Body [place], Extremities Blue Resuscitation Effort 1 min: Tactile Stimulation SCORE 1 MIN: 9 Heart Rate 5 min: >100 bpm Resp Effort 5 min: Good Cry Reflex Irritability 5 min: Cough or Sneeze or Pulls Away Muscle Tone 5 min: Active Motion Color 5 min: Body [place], Extremities Blue Resuscitation Effort 5 min: N/A SCORE 5 MIN: 9 Resuscitation Effort 10 min: N/A INFANT INFORMATION BABY A Gestational Age at Delivery: 40.0 Gestational Status: Full Term- 39- 40.6 Weeks Infant Outcome : Liveborn Condition : Stable Sex: Male IDENTIFICATION BABY A Infant Verification Date/Time: 07/23/2019 11:07 ID Band Number: [id number] Mother's Name Verified: Yes RN Verifying Infant: Elizabeth Messina RN Additional Verifying Personnel: Shanelle Martinez RN WEIGHT/LENGTH BABY A Birthweight (gm): 4050 Weight (lb): 8 Infant Weight (oz): 15 Infant Length (in): 20.50 Infant Length (cm): 52.07 CORD INFORMATION BABY A No. Cord Vessels: 3 Nuchal Cord : N/A Nuchal Cord- Other: loop between head and shoulder Cord Blood Taken: Yes-For Storage (Mom's Blood type +) Infant Suction: None ASSESSMENT BABY A Complications: Meconium; Other Complications- Other: meconium fluid with occult loop of cord noted upon delivery of [place]oulders Physical Findings at Delivery: Within Normal Limits Infant Respirations: Appears Normal Skin to Skin: Yes Skin to Skin Time (min): 60 Panel Lay Up Worker/ALS Called : No Care By: Robert Carroll RN Transferred To: Remains with Mother BABY B INFORMATION : N/A SIGNATURES : I personally evaluated and examined the patient in conjunction with the MLP and agree with the assessment, treatment plan and disposition.
[2019-07-23] MEDS: IBUPROFEN 800 MG TABLET PO SCH ×2 (15:35→21:28)
[2019-07-23] MEDS: DOCUSATE SODIUM 100 MG CAPSULE PO SCH (17:09)
[2019-07-23] MEDS: FERROUS SULFATE 325 MG TABLET PO SCH (17:10)
[2019-07-23] MEDS: FAMOTIDINE 20 MG TABLET PO SCH (21:28)
[2019-07-24] MEDS: IBUPROFEN 800 MG TABLET PO SCH ×3 (05:25→21:08)
--- NOTE | 2019-07-24 09:17 | PDOC PROGRESS REPORT ---
Subjective-OB Progress Note for:: 07/24/19 - PP Day #1, doing well, no complaints, AB+, rubella immune, , Hx PPH after delivery Physical Exam (OB) Vital Signs: Temp Pulse Resp BP Pulse Ox 98.0 F 87 16 113/62 100 07/24/19 08:15 07/24/19 08:15 07/24/19 08:15 07/24/19 08:15 07/24/19 08:15 Intake & Output 07/23/19 07/24/19 07/25/19 06:59 06:59 06:59 Intake Total 650 Balance 650 Weight 83 kg - General General Appearance: Appears well, Alert - PIH/Pre-Eclampsia Epigastric Pain: No Visual Changes: No - Lochia Lochia Amount: Small 10-25 ml Lochia Color: Rubra/Red - Abdomen Description: Tender, Soft, Round Hernia Present: No Fundal Description: Firm, Midline Fundal Height: u/u - u/2 - Respiratory Respiratory Status: No respiratory distress - Genitourinary Genitourinary Note: voiding - Extremities Upper extremity: Normal inspection Lower extremities: Normal inspection - Neurological Cognition: Normal Orientation: AAOx4 - Psychological Associated symptoms: Normal affect, Normal mood - Skin Skin Temperature: Warm Skin Moisture: Dry Objective-Diagnostic Laboratory: 07/23/19 11:42 07/23/19 07/23/19 11:42 11:42 WBC 21.8 H RBC 4.85 Hgb 11.9 L Hct 37.2 MCV 77 L MCH 24.5 L MCHC 31.9 L RDW 17.0 H Plt Count 240 Seg Neutrophils % Not Reportable Blood Type AB POSITIVE Antibody Screen NEGATIVE Assessment and Plan(PN) - Assessment and Plan (1) Acute blood loss anemia Is this a current diagnosis for this admission?: Yes (2) Normal vaginal delivery Is this a current diagnosis for this admission?: Yes (3) Perineal laceration with delivery, second degree, delivered Is this a current diagnosis for this admission?: Yes (4) Carrier of group B Streptococcus Is this a current diagnosis for this admission?: Yes Plan:: Routine PP orders, ambulation encouraged - Time Spent with Patient Time with patient: Less than 15 minutes Medications reviewed and adjusted accordingly: Yes - Disposition Anticipated Discharge: Home Within: within 24 hours
[2019-07-24] MEDS: PRENATAL VITAMIN W DHA CAPSULE PO SCH (11:20)
[2019-07-24] MEDS: DOCUSATE SODIUM 100 MG CAPSULE PO SCH ×2 (11:20→17:22)
[2019-07-24] MEDS: FERROUS SULFATE 325 MG TABLET PO SCH ×2 (11:21→17:22)
[2019-07-24] MEDS: SENNOSIDES/DOCUSATE 8.6-50 MG 1 EACH TABLET PO SCH (11:21)
[2019-07-24] MEDS: FAMOTIDINE 20 MG TABLET PO SCH ×2 (11:21→21:08)
[2019-07-25] MEDS: IBUPROFEN 800 MG TABLET PO SCH ×2 (05:34→13:23)
[2019-07-25 08:32] VITALS: BP 120/66
[2019-07-25] MEDS: SENNOSIDES/DOCUSATE 8.6-50 MG 1 EACH TABLET PO SCH (09:57)
[2019-07-25] MEDS: FAMOTIDINE 20 MG TABLET PO SCH (09:57)
[2019-07-25] MEDS: DOCUSATE SODIUM 100 MG CAPSULE PO SCH (09:57)
[2019-07-25] MEDS: FERROUS SULFATE 325 MG TABLET PO SCH (09:57)
[2019-07-25] MEDS: PRENATAL VITAMIN W DHA CAPSULE PO SCH (09:57)
[2019-07-25 14:11] LABS: HEMATOCRIT 32.5 % (36.0-47.0); HEMOGLOBIN 10.6 g/dL (12.0-15.5); MEAN CORPUSCULAR HEMOGLOBIN 24.9 pg (27.0-33.4); MEAN CORPUSCULAR HGB CONC 32.8 g/dL (32.0-36.0); MEAN CORPUSCULAR VOLUME 76 fl (80-97); PLATELET COUNT 258 10^3/uL (150-450); RED BLOOD COUNT 4.26 10^6/uL (3.72-5.28); RED CELL DISTRIBUTION WIDTH 17.1 % (11.5-14.0); WHITE BLOOD COUNT 14.8 10^3/uL (4.0-10.5)
--- NOTE | 2019-07-25 14:22 | PDOC DISCHARGE SUMMARY ---
Impression - Admit/DC Date/PCP Admission Date/Primary Care Provider: 07/23/19 10:36 SYLVAIN GALVAN MD Discharge Date: 07/25/19 - Discharge Diagnosis (1) Normal vaginal delivery Is this a current diagnosis for this admission?: Yes (2) Perineal laceration with delivery, second degree, delivered Is this a current diagnosis for this admission?: Yes - Additional Information Resuscitation Status: Full Code Discharge Diet: As Tolerated, Regular Discharge Activity: Activity As Tolerated, No Lifting Over 10 Pounds, No tub bath Referrals: [facility] [Provider Group] (Please call and schedule a 4 week follow up. ) Prescriptions: Ibuprofen [Motrin 800 mg Tablet] 800 mg PO Q8HP PRN #20 tablet PRN Reason: Abdominal Cramping Home Medications: No122/Iron/Folic Acid [ Multi Tablet] 1 each PO DAILY 05/24/19 Ibuprofen [Motrin 800 mg Tablet] 800 mg PO Q8HP PRN #20 tablet 07/25/19 Results Laboratory Results: WBC 21.8 10^3/uL (4.0-10.5) H 07/23/19 11:42 RBC 4.85 10^6/uL (3.72-5.28) 07/23/19 11:42 Hgb 11.9 g/dL (12.0-15.5) L 07/23/19 11:42 Hct 37.2 % (36.0-47.0) 07/23/19 11:42 MCV 77 fl (80-97) L 07/23/19 11:42 MCH 24.5 pg (27.0-33.4) L 07/23/19 11:42 MCHC 31.9 g/dL (32.0-36.0) L 07/23/19 11:42 RDW 17.0 % (11.5-14.0) H 07/23/19 11:42 Plt Count 240 10^3/uL (150-450) 07/23/19 11:42 Lymph % (Auto) Not Reportable 07/23/19 11:42 [place] % (Auto) Not Reportable 07/23/19 11:42 Eos % (Auto) Not Reportable 07/23/19 11:42 Baso % (Auto) Not Reportable 07/23/19 11:42 Absolute Neuts (auto) Not Reportable 07/23/19 11:42 Absolute Lymphs (auto) Not Reportable 07/23/19 11:42 Absolute Monos (auto) Not Reportable 07/23/19 11:42 Absolute Eos (auto) Not Reportable 07/23/19 11:42 Absolute Basos (auto) Not Reportable 07/23/19 11:42 Total Counted 100 07/23/19 11:42 Seg Neutrophils % Not Reportable 07/23/19 11:42 Seg Neuts % (Manual) 93 % (42-78) H 07/23/19 11:42 Band Neutrophils % 1 % (3-5) L 07/23/19 11:42 Lymphocytes % (Manual) 4 % (13-45) L 07/23/19 11:42 Monocytes % (Manual) 2 % (3-13) L 07/23/19 11:42 Eosinophils % (Manual) 0 % (0-6) 07/23/19 11:42 Basophils % (Manual) 0 % (0-2) 07/23/19 11:42 Abs Neuts (Manual) 20.5 10^3/uL (1.7-8.2) H 07/23/19 11:42 Abs Lymphs (Manual) 0.9 10^3/uL (0.5-4.7) 07/23/19 11:42 Abs Monocytes (Manual) 0.4 10^3/uL (0.1-1.4) 07/23/19 11:42 Absolute Eos (Manual) 0.0 10^3/uL (0.0-0.6) 07/23/19 11:42 Abs Basophils (Manual) 0.0 10^3/uL (0.0-0.2) 07/23/19 11:42 Platelet Comment ADEQUATE 07/23/19 11:42 Polychromasia SLIGHT 07/23/19 11:42 Hypochromasia SLIGHT 07/23/19 11:42 Poikilocytosis SLIGHT 07/23/19 11:42 Anisocytosis 1+ 07/23/19 11:42 Microcytosis SLIGHT 07/23/19 11:42 Ovalocytes SLIGHT 07/23/19 11:42 RPR NONREACTIVE (NONREACTIVE) 07/23/19 11:42 Blood Type AB POSITIVE 07/23/19 11:42 Antibody Screen NEGATIVE 07/23/19 11:42
== END 2019-07-25 15:45 | disposition home or self-care (01) | DRG 768 ==
LOC: LC 10:19 → LR 10:36 → 2S 13:38
PROVIDERS: ADMIT Obstetrics & Gynecology; ATTEND Obstetrics & Gynecology
PROC: 10E0XZZ Delivery of Products of Conception, External Approach (ICD-10-PCS; principal; 2019-07-23)
PROC: 0UQG0ZZ Repair Vagina, Open Approach (ICD-10-PCS; 2019-07-23)
DX: O77.0 Labor and delivery complicated by meconium in amniotic fluid (principal); Z37.0 Single live birth; O71.4 Obstetric high vaginal laceration alone; D62 Acute posthemorrhagic anemia; O69.81X0 Labor and delivery complicated by cord around neck, without compression, not applicable or unspecified; O99.824 Streptococcus B carrier state complicating childbirth; O99.02 Anemia complicating childbirth; Z3A.40 40 weeks gestation of pregnancy
CPT/HCPCS: 36415; 85025; 85027; 86592; 86850; 86900; 86901; J2590; J3490